=== PATIENT | female | born 1970 | race Caucasian/White ===

== ENCOUNTER → 2019-04-14 11:35 | Outpatient (BNVA) | payer OTHER, SELFPAY | PROVIDERS: PCP Nurse Practitioner Family; Visit Provider Nurse Practitioner Family | DX: R39.9 Unspecified symptoms and signs involving the genitourinary system (principal); N30.00 Acute cystitis without hematuria; M54.2 Cervicalgia; G89.29 Other chronic pain | CPT/HCPCS: 81003; 87086 ==

== ENCOUNTER → 2020-01-24 14:30 | Outpatient (BNVA) | payer OTHER, SELFPAY | PROVIDERS: PCP Nurse Practitioner Family; Visit Provider Nurse Practitioner | DX: I10 Essential (primary) hypertension (principal); Z30.41 Encounter for surveillance of contraceptive pills | CPT/HCPCS: 80053; 80061; 81000; 84443; 85025 ==

== ENCOUNTER → 2020-05-16 09:44 | Outpatient (BNVA) | payer OTHER, SELFPAY | PROVIDERS: PCP Nurse Practitioner Family; Visit Provider Nurse Practitioner | DX: Z30.41 Encounter for surveillance of contraceptive pills (principal); I10 Essential (primary) hypertension | CPT/HCPCS: 80053 ==

== ENCOUNTER → 2020-07-03 08:29 | Outpatient (BNVA) | payer OTHER, SELFPAY | PROVIDERS: PCP Nurse Practitioner Family; Visit Provider Nurse Practitioner Family | DX: R30.0 Dysuria (principal); N39.0 Urinary tract infection, site not specified | CPT/HCPCS: 81000 ==

== ENCOUNTER → 2020-10-05 14:49 | Outpatient (BNVA) | payer OTHER, SELFPAY | PROVIDERS: PCP Nurse Practitioner Family; Visit Provider Nurse Practitioner Family | DX: R00.2 Palpitations (principal); I10 Essential (primary) hypertension; I45.4 Nonspecific intraventricular block | CPT/HCPCS: 80053; 84443; 85025 ==

== ENCOUNTER 2020-11-21 10:17 | Outpatient (CLI) | payer OTHER, SELFPAY ==
--- NOTE | 2020-11-21 10:15 | USCV_ITS ---
Damaris Delgado Age: 50 Gender: F : 1970 Exam Date: 11/21/2020 11:18 Ordering Phys: Salvador Salazar MD ([email or web address]) Technologist: Bhavani Fried Exam Location: [facility] – [place] Indication: dyspnea, unspecified BP: 130 / 80 HR: 82 Rhythm: Sinus Technical Quality: Good MEASUREMENTS (Male / Female) Normal Values 2D ECHO LV Diastolic Diameter PLAX 3.9 cm 4.2 - 5.9 / 3.9 - 5.3 cm LV Systolic Diameter PLAX 2.7 cm IVS Diastolic Thickness 0.9 cm 0.6 - 1.0 / 0.6 - 0.9 cm IVS Systolic Thickness 1.5 cm LVPW Diastolic Thickness 1.2 cm 0.6 - 1.0 / 0.6 - 0.9 cm LVPW Systolic Thickness 1.6 cm LVOT Diameter 2.1 cm LV Ejection Fraction 2D Teich 60.3 % LV Ejection Fraction MOD 2C 64.9 % LV Ejection Fraction 2C AL 66.3 % LA Diameter 2.9 cm LA Width 3.4 cm LA Height 5.7 cm RA Width 3.8 cm RA Height 4.8 cm Aorta at Sinotubular Diameter 3.7 cm DOPPLER AV Peak Velocity 116.0 cm/s LVOT Peak Velocity 115.0 cm/s AV Area Cont Eq vti 3.4 cm squared AV Area Cont Eq pk 3.3 cm squared MV Peak Velocity 74.0 cm/s MV Area PHT 3.9 cm squared Mitral E to A Ratio 1.4 MV E' Velocity 40.5 cm/s Mitral E to MV E' Ratio 9.0 Mitral E to LV E' Lateral Ratio 7.1 Mitral E to LV E' Septal Ratio 12.2 TR Peak Velocity 66.0 cm/s TR Peak Gradient 1.7 mmHg Right Atrial Pressure 3.0 mmHg Pulmonary Artery Systolic Pressu 4.7 mmHg PV Peak Velocity 71.0 cm/s RV Acceleration Time 0.2 s RV Ejection Time 0.3 s RV AcT/ET 0.7 FINDINGS Left Ventricle Normal left ventricular size and systolic function, EF 62 %. No regional wall motion abnormalities. Right Ventricle The right ventricle is normal in size and function. Right Atrium The right atrium is normal in size. Left Atrium The left atrium is normal in size. Mitral Valve No gross abnormalities noted Aortic Valve Trace aortic valve regurgitation. Tricuspid Valve Trace tricuspid valve regurgitation. Pulmonic Valve No gross abnormalities noted Pericardium Normal pericardium without effusion. Aorta Normal ascending aorta dimension. CONCLUSIONS Normal left ventricular size and systolic function, EF 62 %. No regional wall motion abnormalities. Trace aortic valve regurgitation. Trace tricuspid valve regurgitation. There is no pericardial effusion. There are no intracardiac masses. No previous study is available for comparison. Dr Salvador Salazar MD FACC (Electronically Signed) Final Date: 22 November 2020 00:07 S
== END 2020-11-21 10:18 | disposition home or self-care (01) ==
LOC: US 10:20
PROVIDERS: PCP Nurse Practitioner Family; Visit Provider Internal Medicine Cardiovascular Disease
DX: R06.00 Dyspnea, unspecified (principal); R94.31 Abnormal electrocardiogram [ECG] [EKG]; I08.2 Rheumatic disorders of both aortic and tricuspid valves
CPT/HCPCS: 93306

== ENCOUNTER 2021-01-10 06:44 | Outpatient (CLI) | payer OTHER, SELFPAY ==
[2021-01-10 07:00] VITALS: BMI 29.0
--- NOTE | 2021-01-10 07:01 | ECG_ITS ---
[facility] Test Date: 2021-01-10 Pat Name: Damaris Delgado Department: Room: Gender: Female Installation Drafter: Laurarobert NelsonYaima : 1970 Requested By: Salvador Salazar Order Number: [id number] Reading MD: Salvador Salazar M.D. Interpretive Statements NAME OF STUDY: LEXISCAN SESTAMIBI STRESS TEST INDICATION: Shortness of Breath, PROCEDURE: At the baseline, the EKG revealed normal sinus rhythm with normal ST Ts. The baseline blood pressure was 139/89 mm Hg with a heart rate of 75 beats/min. Lexiscan was infused over a period of 20 seconds. A total of 0.4 milligrams of Lexiscan was infused. The stress phase was continued for a total of 5 minutes. Heart rate at the end of the stress phase was 98 with a blood pressure 111/88. The EKG at the peak infusion revealed no significant changes. Sestamibi was injected 20 seconds after the Lexiscan infusion. Blood pressure at the end of the recovery phase was 108/86 with a heart rate of 96 per minute. CONCLUSION: 1. No significant EKG changes with the LexiScan infusion 2. No LexiScan induced chest pain or cardiac arrhythmia 3. Normal blood pressure and heart rate response 4. Sestamibi/sestamibi perfusion scan pending; see separate report. Electronically Signed On 01-12-2021 11:09:03 TECHNICAL MGR by Salvador Salazar M.D. [id number]
--- NOTE | 2021-01-10 07:01 | NMCV_ITS ---
NM kayla perf SPECT r/s* [id number] Damaris Delgado Age: 50 Gender: F : 1970 Exam Date: 01/10/2021 07:53 Ordering Phys: Salvador Salazar MD ([email or web address]) Technologist: ANGELES Pamla Exam Location: [facility] Indications: SHORTNESS OF BREATH STRESS TEST Please [facility] for [facility] IMAGE PROTOCOL Rest/Stress 1 Lexiscan Day Radiopharmaceutical Dose (mCi) Administration Site Administered by Rest: Tc-99m 10.8 IV ANGELES Brown Sestamibi Stress:Tc-99m 32.4 IV ANGELES Palma Sestamimariya Rest: 10-Jan-2021 60 Discovery 630 Stress: 10-Jan-2021 30 Discovery 630 0.4mg Lexiscan. Images obtained in supine and prone position. SPECT RESULTS Technical Quality: Excellent Raw Data Analysis: Normal Image Corrections: No attenuation or motion correction applied Summed Stress Score: 0 Summed Rest Score: 0 Summed Difference Score: 0 PERFUSION FINDINGS Fairly uniform myocardial tracer uptake with no significant perfusion abnormalities FUNCTIONAL RESULTS (calculated via Gated SPECT) Stress Image LV EF (%): 79 Stress EDV (mL):98 TID: 1.12 Stress ESV (mL):21 FUNCTIONAL FINDINGS: Segmental wall motion analysis revealing no gross wall motion abnormalities IMPRESSIONS 1. Unremarkable myocardial perfusion imaging 2. Normal LV ejection fraction 79%. 3. LV wall motion analysis revealing no gross wall motion abnormalities. 4. Normal LV volume. No significant coronary ischemia, based on the above findings Dr Salvador Salazar MD FAC (Electronically Signed) Final Date: 10 January 2021 19:33 S
[2021-01-10] MEDS: regadenoson 0.4 Mg/5 ml Syringe IVP (08:34)
[2021-01-10 08:42] VITALS: BP 108/86; PULSE 95
== END 2021-01-10 06:45 | disposition home or self-care (01) ==
LOC: CDL 06:50
PROVIDERS: PCP Nurse Practitioner Family; Visit Provider Internal Medicine Cardiovascular Disease
DX: R06.02 Shortness of breath (principal); R94.31 Abnormal electrocardiogram [ECG] [EKG]
CPT/HCPCS: 78452; 93017; A9500; J2785

== ENCOUNTER → 2021-02-27 10:00 | Outpatient (BNVA) | payer OTHER, SELFPAY | PROVIDERS: PCP Nurse Practitioner Family; Visit Provider Nurse Practitioner Family | DX: Z20.822 Contact with and (suspected) exposure to COVID-19 (principal) | CPT/HCPCS: 87635 ==

== ENCOUNTER → 2021-03-01 13:53 | Outpatient (BNVA) | payer OTHER, SELFPAY | PROVIDERS: PCP Nurse Practitioner Family; Visit Provider Nurse Practitioner Family | DX: Z20.822 Contact with and (suspected) exposure to COVID-19 (principal) | CPT/HCPCS: 87635 ==

== ENCOUNTER → 2021-04-19 11:17 | Outpatient (BNVA) | payer OTHER, SELFPAY | PROVIDERS: PCP Nurse Practitioner Family; Visit Provider Nurse Practitioner Family | DX: I10 Essential (primary) hypertension (principal); F41.9 Anxiety disorder, unspecified; Z12.4 Encounter for screening for malignant neoplasm of cervix; Z12.39 Encounter for other screening for malignant neoplasm of breast | CPT/HCPCS: 80053; 80061; 84443; 85025 ==

== ENCOUNTER 2021-05-24 08:32 | Outpatient (CLI) | payer OTHER, SELFPAY ==
--- NOTE | 2021-05-24 08:36 | MM_ITS ---
WS: [id number] BILATERAL SCREENING 3D TOMOSYNTHESIS DIGITAL MAMMOGRAM WITH CAD HISTORY: Z12.39 - Encounter for other screening for malignant neoplasm COMPARISON: 09/23/2016 Bilateral CC and MLO views submitted. Computer aided detection analyzed. Breast composition: The breasts are heterogeneously dense, which may obscure small masses. No suspici ous masses, microcalcifications or architectural distortion. Asymmetries within each breast. On 3-D i maging no persistent mass identified. MM/[place] [id number] IMPRESSION: BI-RADS: 2-Benign FOLLOW UP: 1 Year Follow-up
== END 2021-05-24 08:33 | disposition home or self-care (01) ==
PROVIDERS: PCP Nurse Practitioner Family; Visit Provider Nurse Practitioner Family
DX: Z12.31 Encounter for screening mammogram for malignant neoplasm of breast (principal)
CPT/HCPCS: 77063; 77067

== ENCOUNTER → 2021-08-09 16:27 | Outpatient (BNVA) | payer OTHER, SELFPAY | PROVIDERS: PCP Nurse Practitioner Family; Visit Provider Nurse Practitioner Family | DX: Z20.822 Contact with and (suspected) exposure to COVID-19 (principal); J06.9 Acute upper respiratory infection, unspecified | CPT/HCPCS: 87635 ==

== ENCOUNTER → 2022-02-21 13:46 | Outpatient (BNVA) | payer OTHER, SELFPAY | PROVIDERS: PCP Nurse Practitioner Family; Visit Provider Nurse Practitioner Family | DX: F41.9 Anxiety disorder, unspecified (principal); I10 Essential (primary) hypertension; T78.40XA Allergy, unspecified, initial encounter | CPT/HCPCS: 80053; 80061; 84443; 85025 ==

== ENCOUNTER → 2022-08-02 09:23 | Outpatient (BNVA) | payer OTHER, SELFPAY | PROVIDERS: PCP Nurse Practitioner Family; Visit Provider Nurse Practitioner Family | DX: I10 Essential (primary) hypertension (principal) | CPT/HCPCS: 80053; 80061; 84443; 85025 ==

== ENCOUNTER 2022-09-12 05:52 | Day surgery (SDC) | payer OTHER, SELFPAY ==
[2022-09-10 11:44] VITALS: BMI 29.7
[2022-09-12 06:12] VITALS: BP 132/92; PULSE 78; RESP 16; TEMP 36.4; O2SAT 96
[2022-09-12 06:17] LABS: OR HCG Qualitative Urine Negative (Negative)
[2022-09-12] MEDS: sodium chloride 0.9% 1,000 ML 30 ML IV (06:17)
--- NOTE | 2022-09-12 06:44 | W.PM.OPSFHP ---
Same Day Surgery H&P Indication for Procedure/HPI DATE OF PROCEDURE: September 12, 2022 CHIEF COMPLAINT/INDICATIONFOR SURGICAL PROCEDURE: Screening colonoscopy PREOP DIAGNOSIS: Encounter for screening colonoscopy PLANNED PROCEDURE: Screening colonoscopy Operation Date: 09/12/22 07:00 Proposed Procedures p Colonoscopy 01582,Z12.11(Not Applicable) - Blaine Mak MD 52-year-old female who presents for evaluation for screening colonoscopy. She is a symptomatic, no active medical problems. ROS 10 point review of system was done and is negative otherwise noted in HPI Medications/Allergies* Home Medications Medication Instructions Recorded Confirmed Type fluticasone propionate 50 2 spray intranasal DAILY PRN Nasal 10/19/20 09/12/22 History mcg/actuation nasal Congestion spray,suspension Allergies/Adverse Reactions Allergy/AdvReac Type Severity Reaction Status Date / Time buspirone Allergy rash Verified 09/10/22 11:39 Current Medications: Generic Name Dose Route Start Last Admin Trade Name Freq PRN Reason Stop Dose Admin Sodium Chloride 1,000 mls @ 30 mls/hr 09/11/22 13:30 09/12/22 06:17 Sodium Chloride 0.9% IV 30 mls/hr .Q24H RADHA Administration Pertinent History/Comorbid Conditions* Medical History (Updated 08/06/22 @ 13:35 by [facility]) Colon cancer screening Encounter for control pills maintenance Essential hypertension Obesity (BMI 30-39.9) Surgical History (Updated 10/04/19 @ 11:50 by [facility]) No pertinent past surgical history Family History (Updated 10/19/20 @ 11:02 by Trang Ye RN) Diabetes Brother Mother CAD (coronary artery disease) Mother Father Clotting disorder Brother Son Chronic kidney disease (CKD) Mother Bleeding disorder Brother Son Lung disease Mother Hypertension Brother Stroke Mother Denies family history of Dementia Suicide Anesthesia complication Cancer Social History Smoking and tobacco status: former smoker Second hand smoke exposure: No Smoking risk assessment/counseling performed?: No Alcohol intake: never Desire information about alcohol rehabilitation?: No Counseling given: No Substance/Drug Use: never Desire information about substance/drug rehabilitation?: No Counseling given: No Adopted: No Caregiver/support person: No Lives independently: Yes Household members: spouse Housing: House Marital status: Number of children: 2 service: No Current occupational status: employed 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 Nose : Mucous membranes are without erythema. Lungs : Equal chest rise bilaterally, no use of accessory muscles, trachea is midline. CV : Rate and rhythm are normal. Abdomen : Soft, ND, NT, no g/r/m Extremities : No edema. Upper extremities are normal bilaterally. Back : non-tender to palpation, no CVA tenderness. Recommendations Surgery/Procedure today Other Plans: 52-year-old female for screening colonoscopy today. I have discussed all the risks and benefits of the colonoscopy. Including, the risk of perforation requiring surgical intervention, rectal bleeding, incomplete colonoscopy requiring repeat procedure in 3 months, missed polyps, need for additional procedures. Patient shows understanding and wishes to proceed. Coding Level of Care Code Acute Code for Chg Fwd Diagnoses
--- NOTE | 2022-09-12 06:54 | ANES.PREANE2 ---
Pre-Anesthetic Assessment Height/Weight: Height 1.7 m Weight 86.183 kg Temp Pulse Resp BP Pulse Ox O2 Del Method 97.5 F L 78 16 132/92 96 Room Air 09/12/22 06:12 09/12/22 06:12 09/12/22 06:12 09/12/22 06:12 09/12/22 06:12 09/12/22 06:12 Preop Diagnosis: Encounter for screening colonoscopy Operation Date: 09/12/22 07:00 Proposed Procedures p Colonoscopy 41931,Z12.11(Not Applicable) - Blaine Mak MD Familial anesthetic complications: none Was Beta Rosette taken within 24 hours: Yes Was Clonidine taken within 24 hours: N/A Last intake: Intake Last Liquid Date 09/11/22 Last Liquid Time 22:00 Last Solid Date 09/10/22 Last Solid Time 23:30 Last Intake: 04:30 (small sip with metoprolol) Social No alcohol and No tobacco Exam alert and oriented x 3 Airway Submandibular: within normal limits Cervical ROM: within normal limits Mallampati: Class II Dentition: full History/ROS No significant history except as noted Pulmonary None reported CV/HEM Hypertension None reported Hepatic None reported GI None reported Metabolic None reported Musc/skel None reported Anesthetic Plan ASA status: 2 Anesthesia: Anesthesia Evaluation, General and MAC Risk of > 500 ml blood loss (7ml/kg in children): No Medications/Allergies Home Medications Medication Instructions Recorded Confirmed Last Taken Type fluticasone propionate 50 2 spray intranasal DAILY PRN Nasal 10/19/20 09/12/22 09/10/22 History mcg/actuation nasal Congestion spray,suspension citalopram 40 mg tablet 40 mg PO DAILY #90 tabs 08/02/22 09/12/22 09/10/22 Rx lisinopril 40 mg tablet 40 mg PO DAILY 90 days #90 tabs 08/02/22 09/12/22 09/10/22 Rx metoprolol succinate 100 mg 100 mg PO DAILY 90 days #90 tabs 08/02/22 09/12/22 09/12/22 Rx tablet,extended release 24 hr semaglutide 0.25 mg or 0.5 mg (2 0.5 mg (0.8 mL) SUBCUT .once 09/11/22 09/12/22 09/03/22 Rx mg/3 mL) subcutaneous pen injector weekly #3 mL (Ozempic) Allergies Allergy/AdvReac Type Severity Reaction Status Date / Time buspirone Allergy rash Verified 09/10/22 11:39 Current Medications Generic Name Dose Route Start Last Admin Trade Name Gavino PRN Reason Stop Dose Admin Sodium Chloride 1,000 mls @ 30 mls/hr 09/11/22 13:30 09/12/22 06:17 Sodium Chloride 0.9% IV 30 mls/hr .Q24H RADHA Administration PFSH Anesthesia Medical History Colon cancer screening Encounter for control pills maintenance Essential hypertension Obesity (BMI 30-39.9) Surgical History No pertinent past surgical history Family History Brother Diabetes Hypertension Bleeding disorder Clotting disorder Mother Diabetes CAD (coronary artery disease) Chronic kidney disease (CKD) Lung disease Stroke Son Bleeding disorder Clotting disorder Father CAD (coronary artery disease) Denies family history of Dementia Suicide Anesthesia complication Cancer Social History Smoking and tobacco status: former smoker Second hand smoke exposure: No Smoking risk assessment/counseling performed?: No Alcohol intake: never Desire information about alcohol rehabilitation?: No Counseling given: No Substance/Drug Use: never Desire information about substance/drug rehabilitation?: No Counseling given: No Adopted: No Caregiver/support person: No Lives independently: Yes Household members: spouse Housing: House Marital status: Number of children: 2 service: No Current occupational status: employed 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
[2022-09-12 07:30] VITALS: BP 93/66; PULSE 81; RESP 18; TEMP 36.3; O2SAT 93
--- NOTE | 2022-09-12 07:39 | ANE.PACU2 ---
Inpatient post-anesthesia follow up: Airway intact: Yes Vital signs: Temperature 97.3 F Pulse Rate 81 Respiratory Rate 18 Blood Pressure 93/66 Pulse Oximetry 93 Oxygen Delivery Me thod Room Air Oxygen Flow Rate Fraction of Inspir ed Oxygen Hydration adequate: Yes Nausea and vomiting: No Pain level: 1 Mental status: Baseline
[2022-09-12 07:50] VITALS: BP 110/81; PULSE 89; RESP 16; TEMP 36.3; O2SAT 94
== END 2022-09-12 08:09 | disposition home or self-care (01) ==
PROVIDERS: Anesthesiology; PCP Nurse Practitioner Family; Visit Provider Surgery
PROC: 0DJD8ZZ Inspection of Lower Intestinal Tract, Via Natural or Artificial Opening Endoscopic (ICD-10-PCS; CPT 45378; principal; 2022-09-12 07:00)
DX: Z12.11 Encounter for screening for malignant neoplasm of colon (principal); K57.30 Diverticulosis of large intestine without perforation or abscess without bleeding; I10 Essential (primary) hypertension; Z87.891 Personal history of nicotine dependence
CPT/HCPCS: 12345; 45378; 45380; 81025; 84703; J2704; J7030

== ENCOUNTER 2023-03-07 13:02 | Emergency (ER) | payer OTHER, SELFPAY ==
--- NOTE | 2023-03-07 13:03 | XR_ITS ---
WS: [id number] XR chest 1V portable [id number] REASON FOR EXAM: cp FINDINGS: Moderate tortuosity and ectasia of the thoracic aorta. Normal heart size. Calcified granulomatous disease in both hemithoraces. No acute/subacute pulmonary parenchymal or pleural abnormality. Bony thorax is intact without significant abnormality. IMPRESSION: No acute chest abnormality.
--- NOTE | 2023-03-07 13:08 | ECG_ITS ---
[facility] Test Date: 2023-03-07 Pat Name: Damaris Delgado Department: Room: Gender: Female Manager Economic: : 1970 Requested By: Mario Somers Order Number: [id number] Benson MD: Norm Juárez M.D. Measurements Intervals [place] Rate: 63 P: 22 MA: 167 QRS: 1 QRSD: 96 T: 8 QT: 390 QTc: 400 Interpretive Statements SINUS RHYTHM INCOMPLETE RIGHT BUNDLE BRANCH BLOCK [90+ ms QRS DURATION, TERMINAL R IN V1/V2, 40+ ms S IN I/aVL/V4/V5/V6] No previous ECG available for comparison Electronically Signed On 03-07-2023 14:55:34 SPECIAL EDUCATION CURRICULUM SPECIALIST by Norm Juárez M.D. [id number]
--- NOTE | 2023-03-07 13:11 | ED_ITS ---
HPI - Chest Pain 2 General: Chief Complaint: Chest Pain Stated Complaint: Chest pains Time Seen by Provider: 03/07/23 13:11 History of Present Illness: 53-year-old female presents emergency de partment with complaints of intermittent chest pain for the previous 1 and half to 2 weeks. She states the pain comes and goes it is an intermittent sharp pain that has on 2 occasions made her left arm feel tingly. She states that she currently has this left chest wall pain but it does not radiate. She states there is nothing specific that makes the pain occur and nothing that she can think of that relieves the pain. She states that when it does occur it is a 3 out of 10. She states she also has been seen by her library serials assistant Dr. Salazar for palpitations in the past. She states that 6 days ago she felt that her heart rate got up to approximately 130 when she was using the bathroom. She denies nausea vomiting dizziness or lightheaded feeling at present. Associated symptoms: Reports palpitations Review of Systems 2 General: Reports: 10 or more systems reviewed and unremarkable except in HPI and below Card: Reports: chest pain and palpitations PFSH ED 2 PFSH: Medical History Colon cancer screening Encounter for control pills maintenance Essential hypertension Obesity (BMI 30-39.9) Surgical History Hx of colonoscopy 09/17/22 Dr. Mak No pertinent past surgical history Family History Brother Diabetes Hypertension Bleeding disorder Clotting disorder Mother Diabetes CAD (coronary artery disease) Chronic kidney disease (CKD) Lung disease Stroke Son Bleeding disorder Clotting disorder Father CAD (coronary artery disease) Denies family history of Dementia Suicide Anesthesia complication Cancer Social History Smoking and tobacco/nicotine status: former use of tobacco/nicotine Second hand smoke exposure: No Alcohol intake: never Substance/Drug Use: never Adopted: No Caregiver/support person: No Lives independently: Yes Household members: spouse Housing: House Marital status: Number of children: 2 service: No Current occupational status: employed 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 Vital signs reviewed as documented. HENMT: Normocephalic, atraumatic. External ears normal appearance without drainage. Nose without drainage, normal appearance. Mucus membranes moist. Neck is supple, No jugular venous distension, trachea is midline, no appreciable carotid bruits. No lymphadenopathy. No meningeal signs. Flexion, extension and lateral rotation is without pain. Eyes: Pupils are equal, round, reactive to light and accommodation. No scleral icterus. Extra-ocular movement are intact. Thorax is symmetrical and with equal rise and fall with respirations. Resp: Lungs are clear to auscultation. No wheezes, rales, crackles or ronchi at present. Cardio: Regular rate and rhythm. Positive S1, S2. No appreciable murmurs, rubs or gallops. GI: Abdominal exam reveals normal bowel sounds to all quadrants. No organomegaly. No obvious palpable masses noted. No hepatomegally appreciated. Soft, non-tender to palpation. Extremity: Extremities are non-edematous and both femoral and pedal pulses are 2+ and equal bilaterally. Moves all extremities well, sensation in all extremities. Neuro: Alert and oriented x4, person, place, time and situation. Cranial nerves II through XII are grossly intact, there is no focal neurological deficits that I can appreciate at present. Motor strength in the upper and lower extremities are equal and bilateral 5/5. Psych: Cooperative, calm, normal thought process, appropriate judgment. Skin: No lesions, rashes. No gross abnormalities noted. Back: Symmetrical, no obvious deformity, No CVA tenderness Course 2 Reevaluation(s): Reevaluation #1: Reevaluation the patient demonstrates no chest pain while here in the emergency department. I discussed the patient's vital signs as well as her laboratory findings and recommended follow-up with her primary care provider for possible additional evaluation and referral to cardiology. Time: 15:46 Vital Signs: Vital signs: Vital Signs Temperature 98.3 F 03/07/23 13:16 Pulse Rate 87 03/07/23 15:57 Respiratory Rate 17 03/07/23 15:57 Blood Pressure 109/85 03/07/23 15:57 Pulse Oximetry 95 03/07/23 15:57 Oxygen Delivery Me thod Room Air 03/07/23 15:21 MDM - Chest Pain Medical Decision Making 53-year-old female presents emergency department with intermittent chest pain we will obtain serial EKGs, serial cardiac enzymes chest x-ray, CBC, CMP PT PTT INR as well as provide her cardiac dose aspirin and reevaluate. Medical Records I reviewed the patient's medical records. Lab Data I reviewed the patient's lab results. 03/07/23 13:12 03/07/23 13:12 Laboratory Results WBC 7.96 10^3/uL (3.29-11.43) 03/07/23 13:12 RBC 4.45 10^6/uL (3.85-5.65) 03/07/23 13:12 Hgb 13.10 g/dL (11.27-16.99) 03/07/23 13:12 Hct 41.8 % (36-47) 03/07/23 13:12 MCV 93.9 fl (85-98) 03/07/23 13:12 MCH 29.4 pg (27-33) 03/07/23 13:12 MCHC 31.3 g/dL (30-55) 03/07/23 13:12 RDW 12.9 % (12.1-15.1) 03/07/23 13:12 Plt Count 246 10^3/cmm (157-399) 03/07/23 13:12 MPV 10.8 fL (7.4-10.4) H 03/07/23 13:12 Neut % (Auto) 51.6 % 03/07/23 13:12 Lymph % (Auto) 33.5 % 03/07/23 13:12 [place] % (Auto) 10.2 % 03/07/23 13:12 Eos % (Auto) 3.4 % 03/07/23 13:12 Baso % (Auto) 1.0 % 03/07/23 13:12 Neut # (Auto) 4.11 10^3/uL (1.8-7.7) 03/07/23 13:12 Lymph # (Auto) 2.7 10^3/uL (0.8-4.8) 03/07/23 13:12 [place] # (Auto) 0.8 10^3/uL (0.2-0.9) 03/07/23 13:12 Eos # (Auto) 0.3 10^3/uL (0.0-0.8) 03/07/23 13:12 Baso # (Auto) 0.1 10^3/uL (0.0-0.1) 03/07/23 13:12 Nucleated RBC % (auto) 0 % 03/07/23 13:12 Nucleated RBCs # 0.0 /100WBC 03/07/23 13:12 Sodium 142 mmol/L (136-145) 03/07/23 13:12 Potassium 4.0 mmol/L (3.5-5.1) 03/07/23 13:12 Chloride 103 mmol/L (98-107) 03/07/23 13:12 Carbon Dioxide 29 mmol/L (22-29) 03/07/23 13:12 Anion Gap 14.0 (5-19) 03/07/23 13:12 BUN 7 mg/dL (6-20) 03/07/23 13:12 Creatinine 0.5 mg/dL (0.5-0.9) 03/07/23 13:12 GFR Calculation 130.1 mL/min (90-130) H 03/07/23 13:12 Glucose 85 mg/dL (65-115) 03/07/23 13:12 Calculated Osmolality 291 mOsm/kg (285-295) 03/07/23 13:12 Calcium 9.6 mg/dL (8.5-10.5) 03/07/23 13:12 Total Bilirubin 0.9 mg/dL (0.15-1.2) 03/07/23 13:12 AST 18 U/L (0-32) 03/07/23 13:12 ALT 21 U/L (0-33) 03/07/23 13:12 Alkaline Phosphatase 113 U/L (35-105) H 03/07/23 13:12 Troponin T Baseline < 6 ng/L (0-10) 03/07/23 13:12 Troponin T 120 Minute 6.00 ng/L (0-10) 03/07/23 14:36 Delta Troponin T 0.38818 ABS# (0-10) 03/07/23 14:36 Total Protein 7.3 g/dL (6.6-8.7) 03/07/23 13:12 Albumin 4.1 g/dL (3.5-5.2) 03/07/23 13:12 Globulin 3.2 g/dL (1.3-4.6) 03/07/23 13:12 Lipase 28 U/L (13-60) 03/07/23 13:12 All radiology interpretation(s) finalized by discharge EKG Data EKG 1: Interpretation: Twelve-lead EKG obtained at 1308 and reviewed at 1310 demonstrates sinus rhythm with an incomplete right bundle branch block, ventricular rate of 63 bpm, LA interval 167, QRS duration 96 QT 390 QTc [address] elevation or depression to demonstrate acute ischemia or infarction at present. EKG 2: Interpretation: Twelve-lead EKG obtained at 1415 reviewed at 1452 demonstrates sinus rhythm with a ventricular rate of 76 bpm, LA interval 179, QRS duration 95, QT 419, QTc 449 at present there is no ST elevation or depression to demonstrate acute ischemia or infarction. Discharge Plan Discharge Patient Disposition: Home Clinical Impression: Non-cardiac chest pain Condition: Stable Prescriptions: No Action fluticasone propionate 50 mcg/actuation spray,suspension 2 spray intranasal DAILY PRN (Reason: Nasal Congestion) Rx Instructions: administer into each nostril lisinopril 40 mg tablet 40 mg PO DAILY 90 Days Qty: 90 1RF Rx Instructions: [place] Clinical Review Specialist only! (DME) pen needle, diabetic [Comfort EZ Pen [place]] 31 gauge x 5/16 needle See Rx Instructions .Route Qty: 100 2RF Rx Instructions: As directed lisinopril 10 mg tablet 10 mg PO DAILY Victoza 2-Tulio 0.6 mg/0.1 mL (18 mg/3 mL) pen injector 1.8 mg SUBCUT DAILY metoprolol succinate 100 mg tablet extended release 24 hr 100 mg PO QAM Discharge Orders: Discharge ED (Routine); Ordered 03/07/23 Ordered By: Armin Deshpande Referrals: Salvador Salazar MD [Physician] - Franchesca Diaz FNP-C [Primary Care Provider] - Discharge Diet: Low Salt Discharge Activity: Resume usual activity Patient Instructions: Opioid Safety, Pain Management Activity Restrictions/Additional Instructions: Activity Restrictions/Additional Instructions: Thank you for choosing [facility] for your healthcare needs today. Please realize that you were seen in the Emergency Department and that we are providing you with an emergency medical screening exam and this may not be a complete and all inclusive of all the testing and or medical work-up that you may need to determine your ailment or severity of your illness. It is very important that you follow-up as instructed with your Primary care provider or Specialist for additional evaluation and to discuss your medical treatment plan. You may return to the Emergency Department should you have concerns or if your condition changes or worsens in any way. Coding Level of Care Code ED Extruding Machine Operator for Lexis Gillespie
[2023-03-07 13:16] VITALS: BP 136/93; PULSE 73; RESP 16; TEMP 36.8; O2SAT 96
[2023-03-07 13:26] LABS: Basophils # 0.1 10^3/uL (0.0-0.1); Eosinophils # 0.3 10^3/uL (0.0-0.8); Eosinophils % 3.4 %; Hematocrit 41.8 % (36-47); Lymphocytes # 2.7 10^3/uL (0.8-4.8); Lymphocytes % 33.5 %; Mean Corpuscular HGB Conc 31.3 g/dL (30-55); Mean Corpuscular Hemoglobin 29.4 pg (27-33); Mean Corpuscular Volume 93.9 fl (85-98); Mean Platelet Volume 10.8 fL (7.4-10.4); Monocytes # 0.8 10^3/uL (0.2-0.9); Monocytes % 10.2 %; Neutrophils # 4.11 10^3/uL (1.8-7.7); Neutrophils % 51.6 %; Nucleated Red Blood Cells % 0 %; Platelet Count 246 10^3/cmm (157-399); Red Blood Count 4.45 10^6/uL (3.85-5.65); Red Cell Distribution Width 12.9 % (12.1-15.1); White Blood Count 7.96 10^3/uL (3.29-11.43)
--- NOTE | 2023-03-07 13:33 | PC.PHAR ---
pt states she takes care of her own medications-pt states she is no longer taking celexa 40mg daily states not taken since dec 2022 ext shows last filled 02/21/23 30d/s-pt states she is still taking her lisinopril 40mg daily ext shows last filled 12/11/22 90d/s pt states she has not started the lisinopril 10mg daily that was filled on 02/21/23 30d/s-pt states she is taking victoza 1.8mg daily states she started back in jan 2023 then states she got sick and stop taking but states she has restarted taking and is taking 1.8mg daily states she did have it today 03/07/23
[2023-03-07 13:44] LABS: Troponin(5th) Baseline < 6 ng/L (0-10)
[2023-03-07 13:45] LABS: Alanine Aminotransferase 21 U/L (0-33); Albumin Level 4.1 g/dL (3.5-5.2); Alkaline Phosphatase 113 U/L (35-105); Aspartate Amino Transferase 18 U/L (0-32); Blood Urea Nitrogen 7 mg/dL (6-20); Calcium 9.6 mg/dL (8.5-10.5); Carbon Dioxide 29 mmol/L (22-29); Chloride 103 mmol/L (98-107); Globulin 3.2 g/dL (1.3-4.6); Glomerular Filtration Rate 130.1 mL/min (90-130); Glucose 85 mg/dL (65-115); Lipase 28 U/L (13-60); Osmolality Calculated 291 mOsm/kg (285-295); Sodium 142 mmol/L (136-145); Total Bilirubin 0.9 mg/dL (0.15-1.2); Total Protein 7.3 g/dL (6.6-8.7)
[2023-03-07] MEDS: aspirin 81 mg Chew Tablet 324 MG PO (13:51)
[2023-03-07 14:34] VITALS: BP 128/89; PULSE 65; RESP 17; O2SAT 98
--- NOTE | 2023-03-07 14:50 | ECG_ITS ---
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 Measurements Intervals Riley Rate: 76 P: 42 SC: 179 QRS: 7 QRSD: 95 T: 10 QT: 419 QTc: 471 Interpretive Statements SINUS RHYTHM POSSIBLE LEFT ATRIAL ENLARGEMENT [-0.1mV P-WAVE IN V1/V2] LOW QRS VOLTAGE IN PRECORDIAL LEADS [QRS DEFLECTION < 1.0 mV IN CHEST LEADS] INCOMPLETE RIGHT BUNDLE BRANCH BLOCK [90+ ms QRS DURATION, TERMINAL R IN V1/V2, 40+ ms S IN I/aVL/V4/V5/V6] Compared to ECG 03/07/2023 13:08:35 Low QRS voltage now present Electronically Signed On 03-07-2023 14:55:37 [employer] by Norm Juárez M.D. [email or web address]
[2023-03-07 15:17] LABS: Troponin 5 2HR Delta 0.00001 ABS# (0-10)
[2023-03-07 15:21] VITALS: BP 128/89; PULSE 79; RESP 23; O2SAT 94
[2023-03-07 15:57] VITALS: BP 109/85; PULSE 87; RESP 17; O2SAT 95
== END 2023-03-07 15:59 | disposition home or self-care (01) ==
PROVIDERS: Emergency Medicine; Emergency Provider Internal Medicine; PCP Nurse Practitioner Family
DX: R07.89 Other chest pain (principal); Z87.891 Personal history of nicotine dependence; I10 Essential (primary) hypertension
CPT/HCPCS: 36415; 71045; 80053; 83690; 84484; 85025; 93005; 99285

== ENCOUNTER 2023-09-18 07:54 | Day surgery (SDC) | payer OTHER, SELFPAY ==
[2023-09-18 08:13] VITALS: BP 110/71; PULSE 71; RESP 18; TEMP 37.2; O2SAT 96; BMI 29.0
[2023-09-18] MEDS: sodium chloride 0.9% 1,000 ML 30 ML IV (08:17)
--- NOTE | 2023-09-18 08:21 | ANES.PREANE2 ---
Pre-Anesthetic Assessment Height/Weight: Height 1.7 m Weight 83.915 kg Temp Pulse Resp BP Pulse Ox O2 Del Method 98.9 F 71 18 110/71 96 Room Air 09/18/23 08:13 09/18/23 08:13 09/18/23 08:13 09/18/23 08:13 09/18/23 08:13 09/18/23 08:13 Operation Date: 09/18/23 09:00 Proposed Procedures p Colonoscopy 27285, G0105, Z12.11(Not Applicable) - Bliane Mak MD Was Beta Rosette taken within 24 hours: Yes Was Clonidine taken within 24 hours: N/A Last intake: Intake Last Liquid Date 09/17/23 Last Liquid Time 23:55 Last Solid Date 09/16/23 Last Solid Time 18:00 Social Alcohol and No tobacco Exam alert, oriented x 3, clear to auscultation bilaterally and regular rate & rhythm Airway Submandibular: within normal limits Cervical ROM: within normal limits Mallampati: Class II Dentition: full History/ROS No significant history except as noted Pulmonary None reported CV/HEM Hypertension None reported Hepatic None reported GI Peptic Ulcer Disease Metabolic None reported Musc/skel None reported Neuropsych Anxiety Anesthetic Plan ASA status: 2 Anesthesia: MAC Risk of > 500 ml blood loss (7ml/kg in children): No Medications/Allergies Home Medications Medication Instructions Recorded Confirmed Last Taken Type fluticasone propionate 50 2 spray intranasal DAILY PRN Nasal 10/19/20 09/18/23 09/10/22 History mcg/actuation nasal Congestion spray,suspension pen needle, diabetic 31 gauge x #100 ea 03/27/23 09/15/23 Unknown Rx 5/16 (Comfort EZ Pen [place]) lisinopril 40 mg tablet 40 mg PO DAILY 90 days #90 tabs 08/27/23 09/18/23 09/17/23 Rx metoprolol succinate 100 mg 100 mg PO QAM #90 tabs 08/27/23 09/18/23 09/18/23 Rx tablet,extended release 24 hr citalopram 40 mg tablet 40 mg PO DAILY #90 tabs 09/09/23 09/18/23 09/17/23 Rx Allergies Allergy/AdvReac Type Severity Reaction Status Date / Time buspirone Allergy rash Verified 09/18/23 08:08 Current Medications Generic Name Dose Route Start Last Admin Trade Name Freq PRN Reason Stop Dose Admin Sodium Chloride 1,000 mls @ 30 mls/hr 09/18/23 08:00 09/18/23 08:17 Sodium Chloride 0.9% IV 30 mls/hr .Q24H RADHA Administration PFSH Anesthesia Medical History Colon cancer screening Obesity (BMI 30-39.9) Encounter for control pills maintenance Essential hypertension Surgical History Hx of colonoscopy 09/17/22 Dr. Mak No pertinent past surgical history Family History Brother Diabetes Hypertension Bleeding disorder Clotting disorder Mother Diabetes CAD (coronary artery disease) Chronic kidney disease (CKD) Lung disease Stroke Son Bleeding disorder Clotting disorder Father CAD (coronary artery disease) Denies family history of Dementia Suicide Anesthesia complication Cancer Social History Smoking and tobacco/nicotine status: former use of tobacco/nicotine Second hand smoke exposure: No Alcohol intake: never Substance/Drug Use: never Adopted: No Caregiver/support person: No Lives independently: Yes Household members: spouse Housing: House Marital status: Number of children: 2 service: No Current occupational status: employed 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
--- NOTE | 2023-09-18 08:37 | W.PM.OPSFHP ---
Same Day Surgery H&P Indication for Procedure/HPI DATE OF PROCEDURE: September 18, 2023 CHIEF COMPLAINT/INDICATIONFOR SURGICAL PROCEDURE: need for screening colonoscopy PREOP DIAGNOSIS: need for screening colonoscopy PLANNED PROCEDURE: Operation Date: 09/18/23 09:00 Proposed Procedures p Colonoscopy 36592, G0105, Z12.11(Not Applicable) - Blaine Mak MD Medications/Allergies* Home Medications Medication Instructions Recorded Confirmed Type fluticasone propionate 50 2 spray intranasal DAILY PRN Nasal 10/19/20 09/18/23 History mcg/actuation nasal Congestion spray,suspension Allergies/Adverse Reactions Allergy/AdvReac Type Severity Reaction Status Date / Time buspirone Allergy rash Verified 09/18/23 08:08 Current Medications: Generic Name Dose Route Start Last Admin Trade Name Freq PRN Reason Stop Dose Admin Sodium Chloride 1,000 mls @ 30 mls/hr 09/18/23 08:00 09/18/23 08:17 Sodium Chloride 0.9% IV 30 mls/hr .Q24H RADHA Administration Pertinent History/Comorbid Conditions* Medical History (Updated 03/15/23 @ 00:00 by MARIELENA John) Colon cancer screening Obesity (BMI 30-39.9) Encounter for control pills maintenance Essential hypertension Surgical History (Updated 09/26/22 @ 13:38 by Blaine Mak MD) Hx of colonoscopy 09/17/22 Dr. Mak No pertinent past surgical history Family History (Updated 10/19/20 @ 11:02 by Trang Ye RN) Diabetes Brother Mother CAD (coronary artery disease) Mother Father Clotting disorder Brother Son Chronic kidney disease (CKD) Mother Bleeding disorder Brother Son Lung disease Mother Hypertension Brother Stroke Mother Denies family history of Dementia Suicide Anesthesia complication Cancer Social History Smoking and tobacco/nicotine status: former use of tobacco/nicotine Second hand smoke exposure: No Alcohol intake: never Substance/Drug Use: never Adopted: No Caregiver/support person: No Lives independently: Yes Household members: spouse Housing: House Marital status: Number of children: 2 service: No Current occupational status: employed 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
[2023-09-18 09:35] VITALS: BP 90/63; PULSE 74; RESP 20; TEMP 36.2; O2SAT 94
[2023-09-18 09:50] VITALS: BP 104/66; PULSE 71; RESP 18; O2SAT 94
--- NOTE | 2023-09-18 10:05 | ANE.PACU2 ---
Inpatient post-anesthesia follow up: Airway intact: Yes Vital signs: Temperature 97.2 F Pulse Rate 71 Respiratory Rate 18 Blood Pressure 104/66 Pulse Oximetry 94 Oxygen Delivery Me thod Room Air Oxygen Flow Rate Fraction of Inspir ed Oxygen Hydration adequate: Yes Nausea and vomiting: No Pain level: 1 Mental status: Baseline
== END 2023-09-18 10:05 | disposition home or self-care (01) ==
PROVIDERS: PCP Nurse Practitioner Family; Visit Provider Surgery
PROC: 0DJD8ZZ Inspection of Lower Intestinal Tract, Via Natural or Artificial Opening Endoscopic (ICD-10-PCS; CPT 45378; principal; 2023-09-18 09:00)
DX: Z12.11 Encounter for screening for malignant neoplasm of colon (principal); K57.30 Diverticulosis of large intestine without perforation or abscess without bleeding; E66.9 Obesity, unspecified; Z68.29 Body mass index [BMI] 29.0-29.9, adult; I10 Essential (primary) hypertension; Z87.891 Personal history of nicotine dependence; Z87.11 Personal history of peptic ulcer disease; F41.9 Anxiety disorder, unspecified
CPT/HCPCS: 45378; J2704; J7030

== ENCOUNTER → 2024-03-04 10:02 | Outpatient (BNVA) | payer OTHER, SELFPAY | PROVIDERS: PCP Nurse Practitioner Family; Visit Provider Clinical Nurse Specialist Adult Health | DX: I10 Essential (primary) hypertension (principal); N95.1 Menopausal and female climacteric states | CPT/HCPCS: 80053; 82306; 84443; 85025 ==

== ENCOUNTER 2024-04-07 13:19 | Outpatient (CLI) | payer OTHER, SELFPAY ==
--- NOTE | 2024-04-07 13:20 | MM_ITS ---
WS: [id number] BILATERAL 3D TOMOSYNTHESIS DIGITAL SCREENING MAMMOGRAPHY WITH CAD CLINICAL INFORMATION: Z12.39 - Encounter for other screening for malignant neop... HISTORY: Screening mammogram. No current complaints. COMPARISON: 2021 TECHNIQUE: Bilateral CC and MLO views. FINDINGS: The breasts are composed of heterogeneous fibroglandular density tissue, which can limit the detection of small underlying mass lesions. No suspicious mass, asymmetry, calcifications, or architectural distortion. No evidence of malignancy. Bilateral incidental punctate calcifications. MM/MM [facility] tomosynthesis 14264 IMPRESSION: DENSITY: The breasts are heterogeneously dense, which may obscure small masses. BI-RADS: 2 - Benign FOLLOW UP: 1 Year Follow-up Recommend return to annual screening mammography.
== END 2024-04-07 13:20 | disposition home or self-care (01) ==
LOC: MOBLMAM 13:21
PROVIDERS: PCP Clinical Nurse Specialist Adult Health; Visit Provider Clinical Nurse Specialist Adult Health
DX: Z12.31 Encounter for screening mammogram for malignant neoplasm of breast (principal); R92.333 Mammographic heterogeneous density, bilateral breasts; R92.1 Mammographic calcification found on diagnostic imaging of breast; Z01.419 Encounter for gynecological examination (general) (routine) without abnormal findings
CPT/HCPCS: 77063; 77067; 88175